=== PATIENT | female | born 2005 | race Caucasian/White ===

== ENCOUNTER 2024-05-05 15:38 | Emergency (ER) | payer OTHER ==
[2024-05-05 16:19] LABS: SARS-CoV-2 Antigen CONTROL BLUE LINE VIS/BG OK; SARS-CoV-2 Antigen Rapid Res Negative (Negative)
--- NOTE | 2024-05-05 16:28 | ER ---
Nurse's Notes [facility] Name: Winsome Patel Age: 19 yrs Sex: Female : 2005 Arrival Date: 05/05/2024 Time: 15:38 Bed IW2 Private MD: Diagnosis: Viral infection, unspecified Presentation: 05/05 15:45 Chief complaint: Patient states: Sore throat w/ white patches for 2-3 days, also ph reports stuffy nose, denies fever. Coronavirus screen: Vaccine status: Patient reports receiving the 2nd dose of the covid vaccine. Ebola Screen: No symptoms or risks identified at this time. Initial Sepsis Screen: Does the patient meet any 2 criteria? No. Patient's initial sepsis screen is negative. Does the patient have a suspected source of infection? No. Patient's initial sepsis screen is negative. Risk Assessment: Do you want to hurt yourself or someone else? Patient reports no desire to harm self or others. Onset of symptoms was May 05, 2024. 15:45 Method Of Arrival: Ambulatory ph 15:45 Acuity: JOSÉ 4 ph Triage Assessment: 15:48 General: Appears in no apparent distress. Behavior is calm, cooperative. Pain: ph Complains of pain in throat. EENT: Reports pain when swallowing. Historical: - Allergies: 15:45 No Known Allergies; ph - PMHx: 15:45 None; ph - Immunization history:: Adult Immunizations unknown. - Infectious Disease History:: Denies. - Social history:: Smoking status: Patient denies any tobacco usage or history of. Screenin:51 [facility] ED Fall Risk Assessment (Adult) History of falling in the last 3 months, ph including since admission No falls in past 3 months (0 pts) Confusion or Disorientation No (0 pts) Intoxicated or Sedated No (0 pts) Impaired Gait No (0 pts) Mobility Assist Device Used No (0 pt) Altered Elimination No (0 pt) Score/Fall Risk Level 0 - 2 = Low Risk Oriented to surroundings, Maintained a safe environment, Hourly rounding (assess needs \T\ fall precautionary measures) done. Abuse screen: Denies threats or abuse. Denies injuries from another. Nutritional screening: No deficits noted. Tuberculosis screening: No symptoms or risk factors identified. Vital Signs: 15:46 BP 111 / 78; Pulse 81; Resp 18; Temp 98.2; Pulse Ox 100% on R/A; Weight 49.9 kg; Height ph 5 ft. 4 in. ; 15:46 Body Mass Index 18.88 (49.90 kg, 162.56 cm) ph ED Course: 15:44 Patient arrived in ED. ph 15:45 Triage completed. ph 15:46 Arm band placed on Patient placed in waiting room, Patient notified of wait time. ph 15:47 [facility]C [facility] kb 15:47 Hebert Contreras MD is Attending Physician. kb 16:51 Patient has correct armband on for positive identification. ph Administered Medications: No medications were administered Outcome: 16:28 Discharge ordered by MD. kb 16:52 Discharged to home ambulatory, with family, ph 16:52 Condition: good 16:52 Discharge instructions given to patient, Instructed on discharge instructions, follow up and referral plans. Demonstrated understanding of instructions, follow-up care, 16:53 Patient left the ED. ph Signatures: Hiral Ortiz FNP-C FNP-Ckb Hall, Patricia, RN RN ph
--- NOTE | 2024-05-05 16:28 | EDPHYS ---
Physician Documentation [facility] Name: Winsome Patel Age: 19 yrs Sex: Female : 2005 Arrival Date: 05/05/2024 Time: 15:38 Bed IW2 Private MD: ED Physician Hebert Contreras HPI: 05/05 16:27 This 19 yrs old Female presents to ER via Ambulatory with complaints of Sore Throat. kb 16:27 Pt is a 19 year old female who presents for runny nose and sore throat that started 3 kb days ago. Denies cough, fever, congestion, n/v/d. Denies alleviating or aggravating factors. Historical: - Allergies: 15:45 No Known Allergies; ph - PMHx: 15:45 None; ph - Immunization history:: Adult Immunizations unknown. - Infectious Disease History:: Denies. - Social history:: Smoking status: Patient denies any tobacco usage or history of. ROS: 16:26 Constitutional: As per HPI kb Exam: 16:26 Constitutional: This is a well developed, well nourished patient who is awake, alert, kb and in no acute distress. Head/Face: Normocephalic, atraumatic. ENT: Moist Mucous membranes Cardiovascular: Regular rate Respiratory: Respirations even and unlabored. No increased work of breathing. Talking in full sentences Abdomen/GI: Soft, non-tender. No distention Skin: Warm, dry with normal turgor. Normal color. MS/ Extremity: Pulses equal, no cyanosis. Neurovascular intact. Full, normal range of motion. Neuro: Awake and alert, GCS 15, oriented to person, place, time, and situation. Moves all extremities. Normal gait. Vital Signs: 15:46 BP 111 / 78; Pulse 81; Resp 18; Temp 98.2; Pulse Ox 100% on R/A; Weight 49.9 kg; Height ph 5 ft. 4 in. ; 15:46 Body Mass Index 18.88 (49.90 kg, 162.56 cm) ph MDM: 15:47 Patient medically screened. kb 16:26 Differential diagnosis: pharyngitis, viral illness, strep, covid, flu. Data reviewed: kb vital signs, nurses notes. I considered the following discharge prescriptions or medication management in the emergency department I discussed and recommended Over The Counter medications, Antibiotics: At this time antibiotics are not recommended, Antivirals: At this time, antivirals are not recommended. Counseling: I had a detailed discussion with the patient and/or guardian regarding the historical points, exam findings, and any diagnostic results supporting the discharge/admit diagnosis, lab results, the need for outpatient follow up, a family practitioner, to return to the emergency department if symptoms worsen or persist or if there are any questions or concerns that arise at home. 05/05 15:49 Order name: Strep kb 05/05 15:49 Order name: Flu; Complete Time: 16:26 kb 05/05 15:49 Order name: SARS-COV-2 Antigen Rapid; Complete Time: 16:26 kb 05/05 16:22 Order name: Throat Culture EDMS Administered Medications: No medications were administered Disposition Summary: 05/05/24 16:28 Discharge Ordered Notes: Location: Home kb Condition: Stable kb Diagnosis - Viral infection, unspecified kb Followup: kb - With: Emergency Department - When: As needed - Reason: Worsening of condition Followup: kb - With: Private Physician - When: 2 - 3 days - Reason: Recheck today's complaints, Continuance of care, Re-evaluation by your physician Discharge Instructions: - Discharge Summary Sheet kb - Pharyngitis, [id number] kb - Viral Illness, Adult kb Forms: - Medication Reconciliation Form kb - Antibiotic Education kb - Prescription Opioid Use kb - Patient Portal Instructions kb - Leadership Thank You Letter kb Signatures: Dispatcher [employer] Hiral Chaudhry, April Simmons, RN RN ph
[2024-05-05 17:02] VITALS: BP 111/78; TEMP 98.2; O2SAT 100
== END 2024-05-05 16:53 | disposition home or self-care (01) ==
LOC: ER 15:38
DX: B34.9 Viral infection, unspecified (principal); Z11.52 Encounter for screening for COVID-19
CPT/HCPCS: 36415; 87070; 87081; 87804; 87811

== ENCOUNTER 2024-05-15 12:49 | Emergency (ER) | payer OTHER ==
[2024-05-15] MEDS ORDERED: KETOROLAC 30 MG/ML INJ ONE (13:21)
[2024-05-15] MEDS ORDERED: NA CHLORIDE 0.9% 1,000 ML ONE (13:21)
[2024-05-15] MEDS ORDERED: ONDANSETRON 4 MG/2 ML VIAL ONE (13:21)
[2024-05-15 13:35] LABS: Absolute Lymphocytes (CBC) 1.8 K/uL (0.7-4.9); Absolute Monocytes 0.5 K/uL (0.1-1.3); Absolute Neutrophil 7.2 K/uL (1.8-8.0); Basophils % 0.4 % (0-1.3); Eosinophils % 0.4 % (0-4.4); Hematocrit 43.8 % (36.0-45.0); Hemoglobin 14.5 g/dL (12.0-15.0); Lymphocytes % 19.1 % (15.3-44.8); MCH 29.1 pg (27.0-35.0); MCHC 33.1 g/dL (32.0-36.0); MPV 6.4 fL (7.6-11.3); Monocytes % 5.6 % (3.3-12.3); Neutrophils % 74.5 % (41.7-73.7); Platelets 376 thou/uL (152-406); RBC Red Blood Cell Count 4.98 M/uL (3.86-4.86); Red Cell Distribution Width 13.7 % (12.1-15.2)
[2024-05-15 13:53] LABS: ALT/SGPT 18 U/L (13-56); AST/SGOT 13 U/L (15-37); Albumin 4.2 g/dL (3.4-5.0); Albumin/Globulin Ratio 1.2 (1.1-1.8); Alkaline Phosphatase 77 U/L (45-117); Anion Gap 9.1 mEq/L (5.0-15.0); BUN Blood Urea Nitrogen 14 mg/dL (7-18); Bicarbonate 26 mEq/L (21-32); Bilirubin Direct 0.4 mg/dL (0-0.2); Bilirubin Indirect, Calculated 1.4 mg/dL (0.2-0.8); Bilirubin Total 1.8 mg/dL (0.2-1.0); Globulin 3.4 g/dL (2.3-3.5); Glomerular Filtration Rate 100 ml/min (=/>90); Glucose Level 106 mg/dL (74-106); Potassium 4.1 mEq/L (3.5-5.1); Protein, Total 7.6 g/dL (6.4-8.2); Sodium Level 135 mEq/L (136-145)
[2024-05-15 13:56] LABS: Troponin High Sensitivity < 3.0 pg/mL (<58.9)
--- NOTE | 2024-05-15 15:20 | RAD REPORT ---
EXAM DESCRIPTION: aErl Single View05/15/2024 2:36 pm CLINICAL HISTORY: Chest pain COMPARISON: none FINDINGS: The lungs appear clear of acute infiltrate. The heart is normal size IMPRESSION: No acute abnormalities displayed
--- NOTE | 2024-05-15 15:32 | ER ---
Nurse's Notes [facility] Name: Winsome Patel Age: 19 yrs Sex: Female : 2005 Arrival Date: 05/15/2024 Time: 12:49 Bed 8 Private MD: Diagnosis: Chest pain, unspecified Presentation: 05/15 13:02 Chief complaint: Patient states: she started having chest pain approx 2 weeks ago when ap3 vaping. patient states she has since quit vaping and is having continued chest pain. patient reports that today she is having pain in the middle of her chest that radiates to the left arm. patient currently rates her pain as a 3/10 on the pain scale. Coronavirus screen: At this time, the client does not indicate any symptoms associated with coronavirus-19. Ebola Screen: No symptoms or risks identified at this time. Initial Sepsis Screen: Does the patient meet any 2 criteria? HR > 90 bpm. Does the patient have a suspected source of infection? No. Patient's initial sepsis screen is negative. Risk Assessment: Do you want to hurt yourself or someone else? Patient reports no desire to harm self or others. Onset of symptoms is unknown. 13:02 Method Of Arrival: Ambulatory ap3 13:02 Acuity: JOSÉ 2 ap3 Triage Assessment: 13:04 General: Appears in no apparent distress. Behavior is calm, cooperative, appropriate ap3 for age. Pain: Complains of pain in chest Pain radiates to left arm. Neuro: Level of Consciousness is awake, alert, obeys commands, Oriented to person, place, time, situation, Appropriate for age. Cardiovascular: Reports chest pain. Respiratory: Airway is patent Respiratory effort is even, unlabored, Respiratory pattern is regular, symmetrical. Historical: - Allergies: 13:03 No Known Allergies; ap3 - Home Meds: 13:03 None [Active]; ap3 - PMHx: 13:03 None; ap3 - Immunization history:: Client reports receiving the 2nd dose of the Covid vaccine. - Infectious Disease History:: Denies. - Social history:: Smoking status: Reported history of juuling and/or vaping. - Family history:: not pertinent. Screenin:[address] [facility] ED Fall Risk Assessment (Adult) History of falling in the last 3 months, ap3 including since admission No falls in past 3 months (0 pts) Confusion or Disorientation No (0 pts) Intoxicated or Sedated No (0 pts) Impaired Gait No (0 pts) Mobility Assist Device Used No (0 pt) Altered Elimination No (0 pt) Score/Fall Risk Level 0 - 2 = Low Risk Oriented to surroundings, Maintained a safe environment, Educated pt \T\ family on fall prevention, incl call for assistance when getting out of bed, Assessed \T\ reinforced patient's understanding of fall precautions, Hourly rounding (assess needs \T\ fall precautionary measures) done, Used ambulatory aids as needed (educated on \T\ assisted with), Used gait belt as appropriate. Abuse screen: Denies threats or abuse. Nutritional screening: No deficits noted. Tuberculosis screening: No symptoms or risk factors identified. Assessment: 12:58 General: Appears in no apparent distress. uncomfortable, Behavior is calm, cooperative. rs5 Pain: Complains of pain in chest Pain currently is 5 out of 10 on a pain scale. Quality of pain is described as aching, Pain began Is continuous. Neuro: Level of Consciousness is awake, alert, obeys commands, Oriented to person, place, time, situation. Cardiovascular: Patient's skin is warm and dry. Respiratory: Airway is patent Respiratory effort is even, unlabored, Respiratory pattern is regular, symmetrical. GI: Abdomen is round non-distended, Abd is soft and non tender X 4 quads. Reports nausea. : No signs and/or symptoms were reported regarding the genitourinary system. EENT: No signs and/or symptoms were reported regarding the EENT system. Derm: Skin is intact, Skin is pink, warm \T\ dry. Musculoskeletal: Range of motion: intact in all extremities. 13:00 Pain: Pain does not radiate. ko1 13:40 Reassessment: Patient and/or family updated on plan of care and expected duration. Pain rs5 level reassessed. Patient is alert, oriented x 3, equal unlabored respirations, skin warm/dry/pink. Vital Signs: 13:02 BP 110 / 68; Pulse 114; Resp 16; Temp 98.7; Pulse Ox 100% ; Weight 49.9 kg; Height 5 ap3 ft. 0 in. ; Pain 3/10; 13:41 BP 101 / 72; Pulse 70; Resp 17; Pulse Ox 99% on R/A; rs5 14:04 BP 97 / 56; Pulse 70; Resp 18; Pulse Ox 100% ; ko1 15:45 BP 109 / 70; Pulse 74; Resp 17; Pulse Ox 99% on R/A; rs5 13:02 Body Mass Index 21.48 (49.90 kg, 152.4 cm) ap3 13:02 Pain Scale: Adult ap3 ED Course: 12:54 Patient arrived in ED. mg5 12:56 Rod Womack MD is Attending Physician. rt 12:56 William Fernandes, BLADE is Primary Nurse. rs5 13:00 Provided Education on: labs. Door closed. Noise minimized. Lights dimmed. Assisted to ko1 bathroom. 13:03 Triage completed. ap3 13:05 Arm band placed on right wrist. ap3 13:05 Client placed on continuous cardiac and pulse oximetry monitoring. NIBP monitoring ap3 applied. transport engineer on. Pulse ox on. NIBP on. 13:05 Patient maintains SpO2 saturation greater than 95% on room air. ap3 13:05 Inserted saline lock: 20 gauge in right antecubital area, using aseptic technique. rs5 Blood collected. Flushed with 10 mL NS. 13:05 No provider procedures requiring assistance completed. rs5 13:06 Patient has correct armband on for positive identification. Placed in gown. Bed in low rs5 position. Call light in reach. Side rails up X2. 14:37 XRAY Chest (1 view) In Process Unspecified. EDMS 15:50 IV discontinued, intact, bleeding controlled, No redness/swelling at site. Pressure rs5 dressing applied. Administered Medications: 13:12 Drug: Ondansetron IVP 4 mg IVP once; over 2 minutes Route: IVP; Site: right antecubital;rs5 13:41 Follow up: Response: No adverse reaction; Nausea is decreased rs5 13:20 Drug: Ketorolac IVP 15 mg IVP once Route: IVP; Site: right antecubital; rs5 13:41 Follow up: Response: No adverse reaction; Pain is decreased rs5 13:20 Drug: NS 0.9% IV (20 ml/kg) 20 ml/kg IV at 1 bolus once Route: IV; Rate: 1 bolus; Site: rs5 right antecubital; 13:41 Follow up: Response: No adverse reaction rs5 Medication: 14:04 VIS not applicable for this client. ko1 Outcome: 15:31 Discharge ordered by . rt 15:50 Discharged to home ambulatory, with family, rs5 15:50 Condition: stable rs5 15:50 Discharge instructions given to patient, family, Instructed on discharge instructions, follow up and referral plans. 15:51 Patient left the ED. rs5 Signatures: Dispatcher [employer] EDMS Josefina Almonte RN RN ap3 Jael Chand RN RN ko1 Rod Womack MD MD rt William Fernandes RN RN rs5 Katherin Ann mg5 Corrections: (The following items were deleted from the chart) 13:41 12:58 GI: Abdomen is round non-distended, Abd is soft and non tender X 4 quads. rs5 rs5 16:40 14:55 BP 109 / 70; Pulse 74bpm; Resp 17bpm; Pulse Ox 99% RA; rs5 rs5
--- NOTE | 2024-05-15 15:32 | EDPHYS ---
Physician Documentation [facility] Name: Winsome Patel Age: 19 yrs Sex: Female : 2005 Arrival Date: 05/15/2024 Time: 12:49 Bed 8 Private MD: ED Physician Rod Womack HPI: 05/15 13:18 This 19 yrs old Female presents to ER via Ambulatory with complaints of Chest Pain. rt 13:18 Patient presents to the ED with chest pain for the past 2 weeks, states that it rt worsened today. Reports and shortness of breath. Denies cough, reports of mild nausea. Denies abdominal pain. Denies other acute complaints at this time, symptoms are moderate in severity, no other aggravating or alleviating factors.. Historical: - Allergies: 13:03 No Known Allergies; ap3 - Home Meds: 13:03 None [Active]; ap3 - PMHx: 13:03 None; ap3 - Immunization history:: Client reports receiving the 2nd dose of the Covid vaccine. - Infectious Disease History:: Denies. - Social history:: Smoking status: Reported history of juuling and/or vaping. - Family history:: not pertinent. ROS: 13:18 Cardiovascular: Positive for chest pain, Negative for edema, rt 13:18 Respiratory: Positive for shortness of breath, Negative for cough, 13:18 Abdomen/GI: Positive for nausea, Negative for abdominal pain, 13:19 Constitutional: Negative for fever, chills, and weight loss, MS/Extremity: Negative for rt injury and deformity, Skin: Negative for injury, rash, and discoloration, Neuro: Negative for headache, weakness, numbness, tingling, and seizure, Exam: 13:19 Constitutional: This is a well developed, well nourished patient who is awake, alert, rt and in no acute distress. Head/Face: Normocephalic, atraumatic. Chest/axilla: Normal chest wall appearance and motion. Nontender with no deformity. No lesions are appreciated. Cardiovascular: Regular rate and rhythm with a normal S1 and S2. No gallops, murmurs, or rubs. Normal PMI, no JVD. No pulse deficits. Respiratory: Lungs have equal breath sounds bilaterally, clear to auscultation and percussion. No rales, rhonchi or wheezes noted. No increased work of breathing, no retractions or nasal flaring. Abdomen/GI: Soft, non-tender, with normal bowel sounds. No distension or tympany. No guarding or rebound. No evidence of tenderness throughout. Skin: Warm, dry with normal turgor. Normal color with no rashes, no lesions, and no evidence of cellulitis. MS/ Extremity: Pulses equal, no cyanosis. Neurovascular intact. Full, normal range of motion. Neuro: Awake and alert, GCS 15, oriented to person, place, time, and situation. Cranial nerves II-XII grossly intact. Motor strength 5/5 in all extremities. Sensory grossly intact. Cerebellar exam normal. Normal gait. 13:19 ECG was reviewed by the Attending Physician. Vital Signs: 13:02 BP 110 / 68; Pulse 114; Resp 16; Temp 98.7; Pulse Ox 100% ; Weight 49.9 kg; Height 5 ap3 ft. 0 in. ; Pain 3/10; 13:41 BP 101 / 72; Pulse 70; Resp 17; Pulse Ox 99% on R/A; rs5 14:04 BP 97 / 56; Pulse 70; Resp 18; Pulse Ox 100% ; ko1 15:45 BP 109 / 70; Pulse 74; Resp 17; Pulse Ox 99% on R/A; rs5 13:02 Body Mass Index 21.48 (49.90 kg, 152.4 cm) ap3 13:02 Pain Scale: Adult ap3 MDM: 13:07 Patient medically screened. rt 16:21 Differential diagnosis: IL, chest wall pain, nonspecific chest pain, pulmonary embolus. rt HEART Score: History: Slightly Suspicious (0), ECG: Normal (0), Age: < or = 45 years (0), Risk Factors: No Risk Factors Known (0), Troponin: < or = 1 x Normal Limit (0), Total Score = 0. Data reviewed: vital signs, nurses notes, lab test result(s), EKG, radiologic studies. Independent interpretation of the following test(s) in the Emergency Department X-Ray: My interpretation is No pneumonia seen my interpretation of x-ray images. Test considered but Not performed: CT: D-dimer negative, CT angiogram not indicated. Counseling: I had a detailed discussion with the patient and/or guardian regarding the historical points, exam findings, and any diagnostic results supporting the discharge/admit diagnosis, lab results, radiology results, the need for outpatient follow up, to return to the emergency department if symptoms worsen or persist or if there are any questions or concerns that arise at home. Response to treatment: the patient's symptoms have markedly improved after treatment. 05/15 13:12 Order name: Basic Metabolic Panel; Complete Time: 13:59 rt 05/15 13:12 Order name: CBC with Diff; Complete Time: 13:59 rt 05/15 13:12 Order name: LFT's; Complete Time: 13:59 rt 05/15 13:12 Order name: Magnesium; Complete Time: 13:59 rt 05/15 13:12 Order name: Troponin HS; Complete Time: 13:59 rt 05/15 13:12 Order name: Test, Serum; Complete Time: :59 rt 05/15 13:19 Order name: D-Dimer; Complete Time: 13:59 rt 05/15 13:12 Order name: XRAY Chest (1 view); Complete Time: 15:25 rt 05/15 13:12 Order name: EKG; Complete Time: 13:12 rt 05/15 13:12 Order name: Cardiac monitoring; Complete Time: 13:25 rt 05/15 13:12 Order name: EKG - Nurse/Tech; Complete Time: 13:25 rt 05/15 13:12 Order name: IV Saline Lock; Complete Time: 13:25 rt 05/15 13:12 Order name: Labs collected and sent; Complete Time: 13:25 rt 05/15 13:12 Order name: O2 Per Protocol; Complete Time: 13:25 rt 05/15 13:12 Order name: O2 Sat Monitoring; Complete Time: 13:25 rt EC:19 Rate is 109 beats/min. Rhythm is regular, Normal Sinus Rhythm with No ectopy. QRS [place] rt is Normal. PA interval is normal. QRS interval is normal. QT interval is normal. No Q waves. T waves are Normal. No ST changes noted. Interpreted by me. Administered Medications: 13:12 Drug: Ondansetron IVP 4 mg IVP once; over 2 minutes Route: IVP; Site: right antecubital;rs5 13:41 Follow up: Response: No adverse reaction; Nausea is decreased rs5 13:20 Drug: Ketorolac IVP 15 mg IVP once Route: IVP; Site: right antecubital; rs5 13:41 Follow up: Response: No adverse reaction; Pain is decreased rs5 13:20 Drug: NS 0.9% IV (20 ml/kg) 20 ml/kg IV at 1 bolus once Route: IV; Rate: 1 bolus; Site: rs5 right antecubital; 13:41 Follow up: Response: No adverse reaction rs5 Disposition Summary: 05/15/24 15:31 Discharge Ordered Notes: Location: Home rt Problem: new rt Symptoms: have improved rt Condition: Stable rt Diagnosis - Chest pain, unspecified rt Followup: rt - With: Private Physician - When: 2 - 3 days - Reason: Discharge Instructions: - Discharge Summary Sheet rt - Nonspecific Chest Pain, Adult rt Forms: - Work release form eb - Medication Reconciliation Form rt - Antibiotic Education rt - Prescription Opioid Use rt - Patient Portal Instructions rt - Leadership Thank You Letter rt Signatures: Dispatcher [employer] Josefina Gomez RN RN ap3 Rod Womack MD MD rt William Fernandes RN RN rs5 Corrections: (The following items were deleted from the chart) 13:12 13:12 BASIC METABOLIC PANEL+C.LAB.BRZ ordered. EDMS EDMS 13:12 13:12 CBC+H.LAB.BRZ ordered. EDMS EDMS 13:12 13:12 HEPATIC FUNCTION+C.LAB.BRZ ordered. EDMS EDMS 13:12 13:12 MAGNESIUM+C.LAB.BRZ ordered. EDMS EDMS 13:12 13:12 Troponin High Sensitivity+C.LAB.BRZ ordered. EDMS EDMS 13:12 13:12 TEST, SERUM+SC.LAB.BRZ ordered. EDMS EDMS
[2024-05-15 16:09] VITALS: BP 101/72; O2SAT 99
--- NOTE | 2024-05-18 12:46 | EKG ---
Test Date: 2024-05-15 Test Time: 13:05:01 Manufacturing Associate: DARLING MEASUREMENT RESULTS: Intervals: Rate: 109 MO: 128 QRSD: 84 QT: 318 QTc: 428 [place]: P: 81 MO: 128 QRS: 64 T: 64 INTERPRETIVE STATEMENTS: Sinus tachycardia Right atrial enlargement Borderline ECG No previous ECG available for comparison Electronically Signed On 05-18-24 12:41:09 CDT by Edd Gordon
== END 2024-05-15 15:51 | disposition home or self-care (01) ==
LOC: ER 12:49
DX: R07.9 Chest pain, unspecified (principal); R06.02 Shortness of breath; R11.0 Nausea
CPT/HCPCS: 93005; 85025; 80048; 36415; 83735; 84703; 85379; 80076; 84484; 71045; 96375; 96374; 99285; J2405; J7030